=== PATIENT | male | born 1960 | race Caucasian/White ===

== ENCOUNTER 2021-08-30 13:03 | Day surgery (SDC) | payer BC ==
[2021-08-30 13:24] VITALS: RESP 16; TEMP 97.4
[2021-08-30 14:04] LABS: Mean Platelet Volume 6.7; Platelet Count 359 k/uL (150-450)
[2021-08-30 14:12] LABS: Prothrombin Time 11.3 sec (9.0-12.0)
[2021-08-30 15:30] VITALS: PULSE 82
[2021-08-30 15:31] VITALS: BP 132/77
[2021-08-31 06:06] LABS: Appearance,BF Clear
[2021-08-31 06:13] LABS: Albumin, Fluid Source Ascites; T. Protein, Body Fluid Source Ascites; Total Protein, Body Fluid 573 mg/dL
--- NOTE | 2021-08-31 08:26 | US ---
Ultrasound-guided paracentesis. DATE OF EXAM: 08/30/2021 CLINICAL HISTORY: Ascites The procedure was discussed with the patient. The risks, complications, benefits, and alternatives we re discussed and any questions were answered. Informed consent was obtained. The patient was placed s upine on the ultrasound table and prepped and draped in the usual sterile fashion. All elements of maximal barrier technique were utilized. Under ultrasound guidance, access into the right lower quadrant was obtained, via the paracentesis catheter system and direct ultrasound guidanc e. Approximately 6 liters of straw-colored fluid was removed. The patient was stable throughout the proc edure and remained stable upon discharge from Department of Radiology. IMPRESSION: Successful paracentesis under ultrasound guidance.
== END 2021-08-30 15:45 | disposition home or self-care (01) ==
LOC: RADPROMAIN 13:03
PROVIDERS: ATTEND Internal Medicine
DX: G89.3 Neoplasm related pain (acute) (chronic) (principal); C25.9 Malignant neoplasm of pancreas, unspecified; K92.2 Gastrointestinal hemorrhage, unspecified; K62.5 Hemorrhage of anus and rectum; I72.9 Aneurysm of unspecified site
CPT/HCPCS: 82042; 89050; 85049; 85610; 87070; 87205; 87075; 84157; 36415; 49083; J1642

== ENCOUNTER 2021-09-02 09:03 | Day surgery (SDC) | payer BC ==
[2021-09-02 10:15] VITALS: RESP 18; TEMP 98.1
[2021-09-02 11:43] VITALS: BP 131/74; PULSE 78
--- NOTE | 2021-09-02 14:30 | US ---
Ultrasound-guided paracentesis. DATE OF EXAM: 09/02/2021 CLINICAL HISTORY: Ascites The procedure was discussed with the patient. The risks, complications, benefits, and alternatives we re discussed and any questions were answered. Informed consent was obtained. The patient was placed s upine on the ultrasound table and prepped and draped in the usual sterile fashion. All elements of maximal barrier technique were utilized. Under ultrasound guidance, access into the right lower quadrant was obtained, via the paracentesis catheter system and direct ultrasound guidanc e. Approximately 6 liters of straw-colored fluid was removed. The patient was stable throughout the proc edure and remained stable upon discharge from Department of Radiology. IMPRESSION: Successful paracentesis under ultrasound guidance.
== END 2021-09-02 11:30 | disposition home or self-care (01) ==
LOC: RADPROMAIN 09:03
PROVIDERS: ATTEND Internal Medicine
DX: R18.8 Other ascites (principal)
CPT/HCPCS: 49083

== ENCOUNTER 2021-09-09 08:51 | Day surgery (SDC) | payer BC ==
[2021-09-09 09:24] VITALS: RESP 18; TEMP 98.3
[2021-09-09 12:11] VITALS: BP 134/88; PULSE 101
--- NOTE | 2021-09-09 15:32 | US ---
Ultrasound-guided paracentesis. DATE OF EXAM: 09/09/2021 CLINICAL HISTORY: Ascites The procedure was discussed with the patient. The risks, complications, benefits, and alternatives we re discussed and any questions were answered. Informed consent was obtained. The patient was placed s upine on the ultrasound table and prepped and draped in the usual sterile fashion. All elements of maximal barrier technique were utilized. Under ultrasound guidance, access into the right lower quadrant was obtained, via the paracentesis catheter system and direct ultrasound guidanc e. Approximately 4.8 liters of straw-colored fluid was removed. The patient was stable throughout the pr ocedure and remained stable upon discharge from Department of Radiology. IMPRESSION: Successful paracentesis under ultrasound guidance.
== END 2021-09-09 11:30 | disposition home or self-care (01) ==
LOC: RADPROMAIN 08:51
DX: R18.8 Other ascites (principal); C25.9 Malignant neoplasm of pancreas, unspecified
CPT/HCPCS: 49083

== ENCOUNTER 2021-09-12 12:13 | Day surgery (SDC) | payer BC ==
[2021-09-12 12:44] VITALS: RESP 16; TEMP 98.1
[2021-09-12 12:51] LABS: Platelet Count 326 k/uL (150-450)
[2021-09-12 13:21] LABS: INR 0.9 (<1.2); Prothrombin Time 10.3 sec (9.0-12.0)
[2021-09-12 14:32] VITALS: BP 127/73; PULSE 92
--- NOTE | 2021-09-12 14:42 | US ---
Ultrasound-guided paracentesis. DATE OF EXAM: 09/12/2021 CLINICAL HISTORY: Ascites The procedure was discussed with the patient. The risks, complications, benefits, and alternatives we re discussed and any questions were answered. Informed consent was obtained. The patient was placed s upine on the ultrasound table and prepped and draped in the usual sterile fashion. All elements of maximal barrier technique were utilized. Under ultrasound guidance, access into the right lower quadrant was obtained, via the paracentesis catheter system and direct ultrasound guidanc e. Approximately 4.3 liters of straw-colored fluid was removed. The patient was stable throughout the pr ocedure and remained stable upon discharge from Department of Radiology. IMPRESSION: Successful paracentesis under ultrasound guidance.
[2021-09-12 23:30] LABS: Appearance,BF Cloudy
[2021-09-13 06:10] LABS: Albumin, Fluid Source Ascites; T. Protein, Body Fluid Source Ascites; Total Protein, Body Fluid 719 mg/dL
== END 2021-09-12 14:35 | disposition home or self-care (01) ==
LOC: RADPROMAIN 12:13
PROVIDERS: ATTEND Internal Medicine
DX: R18.8 Other ascites (principal)
CPT/HCPCS: 82042; 89050; 85049; 85610; 87070; 87205; 87075; 84157; 49083; J1642; 88108; 88305; 88341; 88342

== ENCOUNTER 2021-09-15 08:46 | Day surgery (SDC) | payer BC ==
[2021-09-15 09:04] VITALS: RESP 16; TEMP 98.1
[2021-09-15 10:37] VITALS: BP 116/79; PULSE 82
--- NOTE | 2021-09-15 13:24 | US ---
EXAMINATION TYPE: US paracentesis abd w/image DATE OF EXAM: 09/15/2021 COMPARISON: NONE HISTORY: Ascites. PROCEDURE: Maximal barrier technique was utilized. The skin overlying a suitable pocket of fluid was localized with ultrasound and the overlying skin was prepped and draped. Ultrasound was utilized with sterile technique. Lidocaine was used for local anesthesia and a skin arina made with a scalpel. Catheter was advanced under direct ultrasound guidance into a suitable pocket of fluid and approximately3.2 liters of cloudy greenish fluid were removed. Catheter was withdrawn and hemostasis achieved. There is no immediate complication; the patient is discharged in stable condition. IMPRESSION: STATUS POST ULTRASOUND GUIDED PARACENTESIS FOR PALLIATION OF ASCITES. THIS PROCEDURE WA S PERFORMED BY THE UNDERSIGNED.
== END 2021-09-15 10:42 | disposition home or self-care (01) ==
LOC: RADPROMAIN 08:46
PROVIDERS: ATTEND Internal Medicine
DX: R18.8 Other ascites (principal)
CPT/HCPCS: 49083

== ENCOUNTER 2021-09-20 12:10 | Day surgery (SDC) | payer BC ==
[2021-09-20 13:03] LABS: Prothrombin Time 10.8 sec (9.0-12.0)
[2021-09-20 13:08] LABS: Mean Platelet Volume 6.5; Platelet Count 376 k/uL (150-450)
[2021-09-20 13:15] VITALS: RESP 16; TEMP 98.3
[2021-09-20 14:31] VITALS: BP 130/76; PULSE 85
--- NOTE | 2021-09-20 15:18 | US ---
EXAMINATION TYPE: US paracentesis abd w/image DATE OF EXAM: 09/20/2021 COMPARISON: NONE HISTORY: Ascites. PROCEDURE: Maximal barrier technique was utilized. The skin overlying a suitable pocket of fluid was localized with ultrasound and the overlying skin was prepped and draped. Ultrasound was utilized with sterile technique. Lidocaine was used for local anesthesia and a skin arina made with a scalpel. Catheter was advanced under direct ultrasound guidance into a suitable pocket of fluid and approximately 5.3 liter s of cloudy yellow-green fluid were removed. Catheter was withdrawn and hemostasis achieved. There is no immediate complication; the patient is discharged in stable condition. IMPRESSION: STATUS POST ULTRASOUND GUIDED PARACENTESIS FOR PALLIATION OF ASCITES. THIS PROCEDURE WA S PERFORMED BY THE UNDERSIGNED.
[2021-09-21 00:47] LABS: Appearance,BF Cloudy
[2021-09-21 07:11] LABS: Albumin, Fluid Source Body Fluid; T. Protein, Body Fluid Source Body Fluid; Total Protein, Body Fluid 838 mg/dL
== END 2021-09-20 14:30 | disposition home or self-care (01) ==
LOC: RADPROMAIN 12:10
PROVIDERS: ATTEND Internal Medicine
DX: R10.9 Unspecified abdominal pain (principal); C25.9 Malignant neoplasm of pancreas, unspecified; I72.9 Aneurysm of unspecified site; K92.2 Gastrointestinal hemorrhage, unspecified; K62.5 Hemorrhage of anus and rectum; G89.3 Neoplasm related pain (acute) (chronic)
CPT/HCPCS: 82042; 89050; 85049; 85610; 84157; 49083; J1642

== ENCOUNTER 2021-09-23 08:51 | Day surgery (SDC) | payer BC ==
[2021-09-23 09:29] VITALS: RESP 16; TEMP 98.4
[2021-09-23 10:33] VITALS: BP 115/71; PULSE 88
--- NOTE | 2021-09-23 12:31 | US ---
EXAMINATION TYPE: US paracentesis abd w/image DATE OF EXAM: 09/23/2021 COMPARISON: NONE HISTORY: Ascites. PROCEDURE: Maximal barrier technique was utilized. The skin overlying a suitable pocket of fluid was localized with ultrasound and the overlying skin was prepped and draped. Ultrasound was utilized with sterile technique. Lidocaine was used for local anesthesia and a skin arina made with a scalpel. Catheter was advanced under direct ultrasound guidance into a suitable pocket of fluid and approximately 4.8 liter s of serous fluid were removed. Catheter was withdrawn and hemostasis achieved. There is no immedia te complication; the patient is discharged in stable condition. IMPRESSION: STATUS POST ULTRASOUND GUIDED PARACENTESIS FOR PALLIATION OF ASCITES. THIS PROCEDURE WA S PERFORMED BY THE UNDERSIGNED.
== END 2021-09-23 10:36 | disposition home or self-care (01) ==
LOC: RADPROMAIN 08:51
PROVIDERS: ATTEND Internal Medicine
DX: R18.8 Other ascites (principal); C25.9 Malignant neoplasm of pancreas, unspecified
CPT/HCPCS: 49083

== ENCOUNTER 2021-09-26 08:51 | Day surgery (SDC) | payer BC ==
[2021-09-26 09:23] LABS: Mean Platelet Volume 6.6; Platelet Count 370 k/uL (150-450)
[2021-09-26 09:57] VITALS: RESP 16; TEMP 97.6
[2021-09-26 10:43] VITALS: BP 123/73; PULSE 85
--- NOTE | 2021-09-26 11:02 | US ---
Ultrasound-guided paracentesis. DATE OF EXAM: 09/26/2021 CLINICAL HISTORY: Ascites The procedure was discussed with the patient. The risks, complications, benefits, and alternatives we re discussed and any questions were answered. Informed consent was obtained. The patient was placed s upine on the ultrasound table and prepped and draped in the usual sterile fashion. All elements of maximal barrier technique were utilized. Under ultrasound guidance, access into the right lower quadrant was obtained, via the paracentesis catheter system and direct ultrasound guidanc e. Approximately 4.1 liters of straw-colored fluid was removed. The patient was stable throughout the pr ocedure and remained stable upon discharge from Department of Radiology. IMPRESSION: Successful paracentesis under ultrasound guidance.
[2021-09-26 19:49] LABS: Albumin, Fluid Source Ascites; T. Protein, Body Fluid Source Ascites; Total Protein, Body Fluid 780 mg/dL
[2021-09-26 20:16] LABS: Appearance,BF Cloudy
== END 2021-09-26 10:49 | disposition home or self-care (01) ==
LOC: RADPROMAIN 08:51
PROVIDERS: ATTEND Internal Medicine
DX: R18.8 Other ascites (principal); G89.3 Neoplasm related pain (acute) (chronic); C25.9 Malignant neoplasm of pancreas, unspecified; R10.9 Unspecified abdominal pain; I72.9 Aneurysm of unspecified site; K92.2 Gastrointestinal hemorrhage, unspecified; K62.5 Hemorrhage of anus and rectum
CPT/HCPCS: 88108; 88305; 82042; 89050; 85049; 85610; 88342; 88341; 87070; 87205; 87075; 84157; 49083; J1642

== ENCOUNTER 2021-09-29 08:57 | Day surgery (SDC) | payer BC ==
[2021-09-29 09:58] VITALS: RESP 16
[2021-09-29 11:03] VITALS: BP 114/80; PULSE 81
--- NOTE | 2021-09-29 12:25 | US ---
EXAMINATION TYPE: US paracentesis abd w/image DATE OF EXAM: 09/29/2021 COMPARISON: NONE HISTORY: Ascites. Pancreatic carcinoma and pain PROCEDURE: Maximal barrier technique was utilized. The skin overlying a suitable pocket of fluid was localized with ultrasound and the overlying skin was prepped and draped. Ultrasound was utilized with sterile technique. Lidocaine was used for local anesthesia and a skin arina made with a scalpel. Catheter was advanced under direct ultrasound guidance into a suitable pocket of fluid and approximately 3.8 liter s of serous fluid were removed. Catheter was withdrawn and hemostasis achieved. There is no immedia te complication; the patient is discharged in stable condition. IMPRESSION: STATUS POST ULTRASOUND GUIDED PARACENTESIS FOR PALLIATION OF ASCITES. THIS PROCEDURE WA S PERFORMED BY THE UNDERSIGNED.
== END 2021-09-29 11:05 | disposition home or self-care (01) ==
LOC: RADPROMAIN 08:57
PROVIDERS: ATTEND Internal Medicine
DX: C25.9 Malignant neoplasm of pancreas, unspecified (principal); R18.8 Other ascites
CPT/HCPCS: 49083

== ENCOUNTER 2021-10-04 12:25 | Day surgery (SDC) | payer BC ==
[2021-10-04 13:00] LABS: Mean Platelet Volume 6.6; Platelet Count 364 k/uL (150-450)
[2021-10-04 13:15] VITALS: TEMP 98.1
[2021-10-04 13:22] LABS: INR 1.1 (<1.2); Prothrombin Time 11.7 sec (9.0-12.0)
[2021-10-04 15:11] VITALS: BP 122/74; PULSE 86; RESP 14
--- NOTE | 2021-10-04 15:20 | US ---
Ultrasound-guided paracentesis. DATE OF EXAM: 10/04/2021 CLINICAL HISTORY: Ascites The procedure was discussed with the patient. The risks, complications, benefits, and alternatives we re discussed and any questions were answered. Informed consent was obtained. The patient was placed s upine on the ultrasound table and prepped and draped in the usual sterile fashion. All elements of maximal barrier technique were utilized. Under ultrasound guidance, access into the right lower quadrant was obtained, via the paracentesis catheter system and direct ultrasound guidanc e. Approximately 4.7 liters of straw-colored fluid was removed. The patient was stable throughout the pr ocedure and remained stable upon discharge from Department of Radiology. IMPRESSION: Successful paracentesis under ultrasound guidance.
== END 2021-10-04 15:05 | disposition home or self-care (01) ==
LOC: RADPROMAIN 12:25
DX: C25.9 Malignant neoplasm of pancreas, unspecified (principal); G89.3 Neoplasm related pain (acute) (chronic); K62.5 Hemorrhage of anus and rectum; I72.9 Aneurysm of unspecified site
CPT/HCPCS: 85049; 85610; 49083; J1642

== ENCOUNTER 2021-10-11 09:09 | Day surgery (SDC) | payer BC ==
[2021-10-11 09:37] LABS: Mean Platelet Volume 6.9; Platelet Count 443 k/uL (150-450)
[2021-10-11 10:07] VITALS: RESP 18
[2021-10-11 10:13] VITALS: TEMP 98.3
[2021-10-11 11:07] VITALS: BP 110/67; PULSE 86
--- NOTE | 2021-10-11 11:59 | US ---
Ultrasound-guided paracentesis. DATE OF EXAM: 10/11/2021 CLINICAL HISTORY: Ascites The procedure was discussed with the patient. The risks, complications, benefits, and alternatives we re discussed and any questions were answered. Informed consent was obtained. The patient was placed s upine on the ultrasound table and prepped and draped in the usual sterile fashion. All elements of maximal barrier technique were utilized. Under ultrasound guidance, access into the right lower quadrant was obtained, via the paracentesis catheter system and direct ultrasound guidanc e. Approximately 5.5 liters of straw-colored fluid was removed. The patient was stable throughout the pr ocedure and remained stable upon discharge from Department of Radiology. IMPRESSION: Successful paracentesis under ultrasound guidance.
== END 2021-10-11 11:30 | disposition home or self-care (01) ==
LOC: RADPROMAIN 09:09
PROVIDERS: ATTEND Family Medicine
DX: R18.8 Other ascites (principal); C25.9 Malignant neoplasm of pancreas, unspecified
CPT/HCPCS: 85049; 85610; 49083; J1642

== ENCOUNTER 2021-10-14 09:18 | Day surgery (SDC) | payer BC ==
[2021-10-14 09:45] VITALS: RESP 16
[2021-10-14 10:37] VITALS: BP 102/65; PULSE 76
--- NOTE | 2021-10-14 13:13 | US ---
Ultrasound-guided paracentesis. DATE OF EXAM: 10/14/2021 CLINICAL HISTORY: Ascites The procedure was discussed with the patient. The risks, complications, benefits, and alternatives we re discussed and any questions were answered. Informed consent was obtained. The patient was placed s upine on the ultrasound table and prepped and draped in the usual sterile fashion. All elements of maximal barrier technique were utilized. Under ultrasound guidance, access into the right lower quadrant was obtained, via the paracentesis catheter system and direct ultrasound guidanc e. Approximately 4.2 liters of straw-colored fluid was removed. The patient was stable throughout the pr ocedure and remained stable upon discharge from Department of Radiology. IMPRESSION: Successful paracentesis under ultrasound guidance.
== END 2021-10-14 11:00 | disposition home or self-care (01) ==
LOC: RADPROMAIN 09:18
PROVIDERS: ATTEND Family Medicine
DX: R18.8 Other ascites (principal); C25.9 Malignant neoplasm of pancreas, unspecified
CPT/HCPCS: 49083

== ENCOUNTER 2021-10-18 12:32 | Day surgery (SDC) | payer BC ==
[2021-10-18 13:14] LABS: Mean Platelet Volume 6.5; Platelet Count 420 k/uL (150-450)
[2021-10-18 13:19] LABS: Prothrombin Time 11.1 sec (9.0-12.0)
[2021-10-18 13:41] VITALS: RESP 16; TEMP 97.5
[2021-10-18 14:52] VITALS: BP 110/72; PULSE 73
--- NOTE | 2021-10-18 15:57 | US ---
EXAMINATION TYPE: US paracentesis abd w/image DATE OF EXAM: 10/18/2021 COMPARISON: NONE HISTORY: Ascites. PROCEDURE: Maximal barrier technique was utilized. The skin overlying a suitable pocket of fluid was localized with ultrasound and the overlying skin was prepped and draped. Ultrasound was utilized with sterile technique. Lidocaine was used for local anesthesia and a skin arina made with a scalpel. Catheter was advanced under direct ultrasound guidance into a suitable pocket of fluid and approximately 4.9 liter s of serous fluid were removed. Catheter was withdrawn and hemostasis achieved. There is no immedia te complication; the patient is discharged in stable condition. IMPRESSION: STATUS POST ULTRASOUND GUIDED PARACENTESIS FOR PALLIATION OF ASCITES. THIS PROCEDURE WA S PERFORMED BY THE UNDERSIGNED.
== END 2021-10-18 15:00 | disposition home or self-care (01) ==
LOC: RADPROMAIN 12:32
PROVIDERS: ATTEND Internal Medicine
DX: R18.8 Other ascites (principal)
CPT/HCPCS: 85049; 85610; 36415; 49083; J1642

== ENCOUNTER 2021-10-25 09:11 | Day surgery (SDC) | payer BC ==
[2021-10-25 09:44] LABS: Mean Platelet Volume 6.5; Platelet Count 343 k/uL (150-450)
[2021-10-25] MEDS: ALBUMIN HUMAN 25% 50 ML in EMPTY BAG 1 BAG IVPB SCH ×2 (09:52→10:15)
[2021-10-25 09:56] LABS: Prothrombin Time 10.9 sec (9.0-12.0)
[2021-10-25 09:57] VITALS: RESP 16; TEMP 97.6
[2021-10-25] MEDS ORDERED: LIDOCAINE 1% INJ 10MG/ML (20 ML MDV) SQ STA (10:13)
[2021-10-25 11:17] VITALS: BP 103/67; PULSE 74
--- NOTE | 2021-10-25 11:26 | US ---
EXAMINATION TYPE: US paracentesis abd w/image DATE OF EXAM: 10/25/2021 COMPARISON: NONE HISTORY: Ascites. PROCEDURE: Maximal barrier technique was utilized. The skin overlying a suitable pocket of fluid was localized with ultrasound and the overlying skin was prepped and draped. Ultrasound was utilized with sterile technique. Lidocaine was used for local anesthesia and a skin arina made with a scalpel. Catheter was advanced under direct ultrasound guidance into a suitable pocket of fluid and approximately 5.7 liter s of serous fluid were removed. Catheter was withdrawn and hemostasis achieved. There is no immedia te complication; the patient is discharged in stable condition. IMPRESSION: STATUS POST ULTRASOUND GUIDED PARACENTESIS FOR PALLIATION OF ASCITES. THIS PROCEDURE WA S PERFORMED BY THE UNDERSIGNED.
== END 2021-10-25 11:10 | disposition home or self-care (01) ==
LOC: RADPROMAIN 09:11
PROVIDERS: ATTEND Internal Medicine Gastroenterology
DX: R18.8 Other ascites (principal)
CPT/HCPCS: 85049; 85610; 49083; J2001; P9047; J1642

== ENCOUNTER 2021-10-28 09:12 | Day surgery (SDC) | payer BC ==
[2021-10-28 09:42] VITALS: RESP 18
[2021-10-28] MEDS: ALBUMIN HUMAN 25% 50 ML in EMPTY BAG 1 BAG IVPB SCH ×2 (09:54→10:12)
[2021-10-28 11:07] VITALS: BP 105/70; PULSE 74
--- NOTE | 2021-10-28 13:05 | US ---
Ultrasound-guided paracentesis. DATE OF EXAM: 10/28/2021 CLINICAL HISTORY: Ascites The procedure was discussed with the patient. The risks, complications, benefits, and alternatives we re discussed and any questions were answered. Informed consent was obtained. The patient was placed s upine on the ultrasound table and prepped and draped in the usual sterile fashion. All elements of maximal barrier technique were utilized. Under ultrasound guidance, access into the right lower quadrant was obtained, via the paracentesis catheter system and direct ultrasound guidanc e. Approximately 5.2 liters of straw-colored fluid was removed. The patient was stable throughout the pr ocedure and remained stable upon discharge from Department of Radiology. IMPRESSION: Successful paracentesis under ultrasound guidance.
== END 2021-10-28 11:05 | disposition home or self-care (01) ==
LOC: RADPROMAIN 09:12
PROVIDERS: ATTEND Internal Medicine Gastroenterology
DX: R18.8 Other ascites (principal)
CPT/HCPCS: 49083; P9047; J1642

== ENCOUNTER 2021-11-01 12:22 | Day surgery (SDC) | payer BC ==
[2021-11-01 12:52] LABS: Mean Platelet Volume 6.9; Platelet Count 385 k/uL (150-450)
[2021-11-01 13:00] LABS: Prothrombin Time 10.8 sec (9.0-12.0)
[2021-11-01] MEDS: ALBUMIN HUMAN 25% 50 ML in EMPTY BAG 1 BAG IVPB SCH ×2 (13:54→14:07)
[2021-11-01 14:01] VITALS: TEMP 97.7
[2021-11-01 15:00] VITALS: RESP 14
[2021-11-01 15:01] VITALS: PULSE 76
[2021-11-01 15:02] VITALS: BP 93/54
--- NOTE | 2021-11-01 15:49 | US ---
Ultrasound-guided paracentesis. DATE OF EXAM: 11/01/2021 CLINICAL HISTORY: Ascites The procedure was discussed with the patient. The risks, complications, benefits, and alternatives we re discussed and any questions were answered. Informed consent was obtained. The patient was placed s upine on the ultrasound table and prepped and draped in the usual sterile fashion. All elements of maximal barrier technique were utilized. Under ultrasound guidance, access into the right lower quadrant was obtained, via the paracentesis catheter system and direct ultrasound guidanc e. Approximately 6.25 liters of straw-colored fluid was removed. The patient was stable throughout the p rocedure and remained stable upon discharge from Department of Radiology. IMPRESSION: Successful paracentesis under ultrasound guidance.
== END 2021-11-01 15:01 | disposition home or self-care (01) ==
LOC: RADPROMAIN 12:22
PROVIDERS: ATTEND Internal Medicine Gastroenterology
DX: R18.8 Other ascites (principal)
CPT/HCPCS: 85049; 85610; 49083; P9047; J1642

== ENCOUNTER 2021-11-04 09:18 | Day surgery (SDC) | payer BC ==
[2021-11-04 09:49] VITALS: TEMP 97.8
[2021-11-04] MEDS ORDERED: LIDOCAINE 1% INJ 10MG/ML (20 ML MDV) SQ ONE (10:05)
[2021-11-04 10:10] VITALS: RESP 14
[2021-11-04] MEDS: ALBUMIN HUMAN 25% 50 ML in EMPTY BAG 1 BAG IVPB SCH ×2 (10:10→10:22)
[2021-11-04 11:31] VITALS: BP 109/64; PULSE 75
--- NOTE | 2021-11-04 12:11 | US ---
Ultrasound-guided paracentesis. DATE OF EXAM: 11/04/2021 CLINICAL HISTORY: Ascites The procedure was discussed with the patient. The risks, complications, benefits, and alternatives we re discussed and any questions were answered. Informed consent was obtained. The patient was placed s upine on the ultrasound table and prepped and draped in the usual sterile fashion. All elements of maximal barrier technique were utilized. Under ultrasound guidance, access into the right lower quadrant was obtained, via the paracentesis catheter system and direct ultrasound guidanc e. Approximately 5.6 liters of straw-colored fluid was removed. The patient was stable throughout the pr ocedure and remained stable upon discharge from Department of Radiology. IMPRESSION: Successful paracentesis under ultrasound guidance.
== END 2021-11-04 11:25 | disposition home or self-care (01) ==
LOC: RADPROMAIN 09:18
PROVIDERS: ATTEND Internal Medicine Gastroenterology
DX: R18.8 Other ascites (principal)
CPT/HCPCS: 49083; J2001; P9047; J1642

== ENCOUNTER 2021-11-08 12:33 | Day surgery (SDC) | payer BC ==
[2021-11-08 13:02] VITALS: TEMP 97.3
[2021-11-08 13:02] LABS: Mean Platelet Volume 6.4; Platelet Count 427 k/uL (150-450)
[2021-11-08] MEDS: ALBUMIN HUMAN 25% 50 ML in EMPTY BAG 1 BAG IVPB SCH ×2 (13:44→13:57)
[2021-11-08 15:01] VITALS: BP 116/74; PULSE 72; RESP 14
--- NOTE | 2021-11-08 15:47 | US ---
Ultrasound-guided paracentesis. DATE OF EXAM: 11/08/2021 CLINICAL HISTORY: Ascites The procedure was discussed with the patient. The risks, complications, benefits, and alternatives we re discussed and any questions were answered. Informed consent was obtained. The patient was placed s upine on the ultrasound table and prepped and draped in the usual sterile fashion. All elements of maximal barrier technique were utilized. Under ultrasound guidance, access into the right lower quadrant was obtained, via the paracentesis catheter system and direct ultrasound guidanc e. Approximately 5.9 liters of straw-colored fluid was removed. The patient was stable throughout the pr ocedure and remained stable upon discharge from Department of Radiology. IMPRESSION: Successful paracentesis under ultrasound guidance.
== END 2021-11-08 14:58 | disposition home or self-care (01) ==
LOC: RADPROMAIN 12:33
PROVIDERS: ATTEND Internal Medicine Gastroenterology
DX: R18.8 Other ascites (principal)
CPT/HCPCS: 85049; 85610; 49083; P9047; J1642

== ENCOUNTER 2021-11-11 09:11 | Day surgery (SDC) | payer BC ==
[2021-11-11 09:21] VITALS: RESP 16; TEMP 97.4
[2021-11-11] MEDS: ALBUMIN HUMAN 25% 50 ML in EMPTY BAG 1 BAG IVPB SCH ×2 (09:52→10:04)
[2021-11-11 10:38] VITALS: BP 115/73; PULSE 78
--- NOTE | 2021-11-11 11:53 | US ---
Ultrasound-guided paracentesis. DATE OF EXAM: 11/11/2021 CLINICAL HISTORY: Ascites The procedure was discussed with the patient. The risks, complications, benefits, and alternatives we re discussed and any questions were answered. Informed consent was obtained. The patient was placed s upine on the ultrasound table and prepped and draped in the usual sterile fashion. All elements of maximal barrier technique were utilized. Under ultrasound guidance, access into the right lower quadrant was obtained, via the paracentesis catheter system and direct ultrasound guidanc e. Approximately 4.9 liters of straw-colored fluid was removed. The patient was stable throughout the pr ocedure and remained stable upon discharge from Department of Radiology. IMPRESSION: Successful paracentesis under ultrasound guidance.
== END 2021-11-11 10:45 | disposition home or self-care (01) ==
LOC: RADPROMAIN 09:11
PROVIDERS: ATTEND Internal Medicine Gastroenterology
DX: R18.8 Other ascites (principal)
CPT/HCPCS: 49083; P9047; J1642

== ENCOUNTER 2021-11-15 12:43 | Day surgery (SDC) | payer BC ==
[2021-11-15 12:59] VITALS: RESP 16; TEMP 97.4
[2021-11-15 13:15] LABS: Mean Platelet Volume 6.3; Platelet Count 445 k/uL (150-450)
[2021-11-15 13:27] LABS: Prothrombin Time 11.1 sec (9.0-12.0)
[2021-11-15] MEDS: ALBUMIN HUMAN 25% 50 ML in EMPTY BAG 1 BAG IVPB SCH ×2 (14:03→14:18)
[2021-11-15 14:40] VITALS: PULSE 73
[2021-11-15 14:58] VITALS: BP 124/75
--- NOTE | 2021-11-15 16:34 | US ---
EXAMINATION TYPE: US paracentesis abd w/image DATE OF EXAM: 11/15/2021 COMPARISON: NONE HISTORY: Ascites. PROCEDURE: Maximal barrier technique was utilized. The skin overlying a suitable pocket of fluid was localized with ultrasound and the overlying skin was prepped and draped. Ultrasound was utilized with sterile technique. Lidocaine was used for local anesthesia and a skin arina made with a scalpel. Catheter was advanced under direct ultrasound guidance into a suitable pocket of fluid and approximately 6 liters of serous fluid were removed. Catheter was withdrawn and hemostasis achieved. There is no immediate complication; the patient is discharged in stable condition. IMPRESSION: STATUS POST ULTRASOUND GUIDED PARACENTESIS FOR PALLIATION OF ASCITES. THIS PROCEDURE WA S PERFORMED BY THE UNDERSIGNED.
== END 2021-11-15 15:10 | disposition home or self-care (01) ==
LOC: RADPROMAIN 12:43
PROVIDERS: ATTEND Internal Medicine Gastroenterology
DX: R18.8 Other ascites (principal)
CPT/HCPCS: 85049; 85610; 49083; P9047; J1642

== ENCOUNTER 2021-11-18 09:11 | Day surgery (SDC) | payer BC ==
[2021-11-18] MEDS: ALBUMIN HUMAN 25% 50 ML in EMPTY BAG 1 BAG IVPB SCH ×2 (11:20→11:30)
[2021-11-18 11:29] VITALS: RESP 20; TEMP 98.2
[2021-11-18 12:07] VITALS: BP 100/65; PULSE 81
--- NOTE | 2021-11-18 13:11 | US ---
EXAMINATION TYPE: US paracentesis abd w/image DATE OF EXAM: 11/18/2021 COMPARISON: NONE HISTORY: Ascites. PROCEDURE: Maximal barrier technique was utilized. The skin overlying a suitable pocket of fluid was localized with ultrasound and the overlying skin was prepped and draped. Ultrasound was utilized with sterile technique. Lidocaine was used for local anesthesia and a skin arina made with a scalpel. Catheter was advanced under direct ultrasound guidance into a suitable pocket of fluid and approximately 4.3 liter s of serous fluid were removed. Catheter was withdrawn and hemostasis achieved. There is no immedia te complication; the patient is discharged in stable condition. IMPRESSION: STATUS POST ULTRASOUND GUIDED PARACENTESIS FOR PALLIATION OF ASCITES. THIS PROCEDURE WA S PERFORMED BY THE UNDERSIGNED.
== END 2021-11-18 12:05 | disposition home or self-care (01) ==
LOC: RADPROMAIN 09:11
PROVIDERS: ATTEND Internal Medicine Gastroenterology
DX: R18.8 Other ascites (principal)
CPT/HCPCS: 49083; P9047

== ENCOUNTER 2021-11-22 12:31 | Day surgery (SDC) | payer BC ==
[2021-11-22 13:01] LABS: Mean Platelet Volume 6.1; Platelet Count 389 k/uL (150-450)
[2021-11-22 13:13] LABS: Prothrombin Time 10.9 sec (9.0-12.0)
[2021-11-22 13:15] VITALS: TEMP 97.9
[2021-11-22] MEDS: ALBUMIN HUMAN 25% 50 ML in EMPTY BAG 1 BAG IVPB SCH ×2 (14:05→14:16)
[2021-11-22 14:22] VITALS: RESP 20
[2021-11-22 15:19] VITALS: BP 106/67; PULSE 74
--- NOTE | 2021-11-22 15:45 | US ---
EXAMINATION TYPE: US paracentesis abd w/image DATE OF EXAM: 11/22/2021 COMPARISON: NONE HISTORY: Ascites. PROCEDURE: Maximal barrier technique was utilized. The skin overlying a suitable pocket of fluid was localized with ultrasound and the overlying skin was prepped and draped. Ultrasound was utilized with sterile technique. Lidocaine was used for local anesthesia and a skin arina made with a scalpel. Catheter was advanced under direct ultrasound guidance into a suitable pocket of fluid and approximately 5.3 liter s of cloudy fluid were removed. Catheter was withdrawn and hemostasis achieved. There is no immedia te complication; the patient is discharged in stable condition. IMPRESSION: STATUS POST ULTRASOUND GUIDED PARACENTESIS FOR PALLIATION OF ASCITES. THIS PROCEDURE WA S PERFORMED BY THE UNDERSIGNED.
== END 2021-11-22 15:05 | disposition home or self-care (01) ==
LOC: RADPROMAIN 12:31
PROVIDERS: ATTEND Internal Medicine Gastroenterology
DX: R18.8 Other ascites (principal)
CPT/HCPCS: 49083; 85049; 85610; P9047; J1642

== ENCOUNTER 2021-11-25 09:03 | Day surgery (SDC) | payer BC ==
[2021-11-25 09:31] VITALS: TEMP 97.9
[2021-11-25] MEDS: ALBUMIN HUMAN 25% 50 ML in EMPTY BAG 1 BAG IVPB SCH ×2 (10:36→10:51)
[2021-11-25 10:51] VITALS: RESP 18
[2021-11-25 11:28] VITALS: BP 116/67; PULSE 79
--- NOTE | 2021-11-25 13:21 | US ---
EXAMINATION TYPE: US paracentesis abd w/image DATE OF EXAM: 11/25/2021 COMPARISON: NONE HISTORY: Ascites. PROCEDURE: Maximal barrier technique was utilized. The skin overlying a suitable pocket of fluid was localized with ultrasound and the overlying skin was prepped and draped. Ultrasound was utilized with sterile technique. Lidocaine was used for local anesthesia and a skin arina made with a scalpel. Catheter was advanced under direct ultrasound guidance into a suitable pocket of fluid and approximately 4.1 liter s of serous fluid were removed. Catheter was withdrawn and hemostasis achieved. There is no immedia te complication; the patient is discharged in stable condition. IMPRESSION: STATUS POST ULTRASOUND GUIDED PARACENTESIS FOR PALLIATION OF ASCITES. THIS PROCEDURE WA S PERFORMED BY THE UNDERSIGNED.
== END 2021-11-25 11:25 | disposition home or self-care (01) ==
LOC: RADPROMAIN 09:03
PROVIDERS: ATTEND Internal Medicine Gastroenterology
DX: R18.8 Other ascites (principal)
CPT/HCPCS: 49083; P9047; J1642

== ENCOUNTER 2021-11-29 12:34 | Day surgery (SDC) | payer BC ==
[~2021-11-29 12:34] MED LIST: ALBUMIN HUMAN 25% 50 ML in EMPTY BAG 1 BAG IVPB ONE
[2021-11-29] MEDS ORDERED: ALTEPLASE 2 MG VIAL (CATHFLO) IV STA (12:57)
[2021-11-29] MEDS ORDERED: ALBUMIN HUMAN 25% 50 ML in EMPTY BAG 1 BAG IVPB ONE (13:34)
[2021-11-29 14:00] VITALS: RESP 18
[2021-11-29] MEDS ORDERED: LIDOCAINE 1% INJ 10MG/ML (5 ML VIAL-PF) SQ ONE (14:28)
[2021-11-29 15:20] LABS: Mean Platelet Volume 6.1; Platelet Count 311 k/uL (150-450)
[2021-11-29 15:25] LABS: INR 1.1 (<1.2); Prothrombin Time 11.3 sec (9.0-12.0)
[2021-11-29 15:39] VITALS: BP 112/76; PULSE 74
--- NOTE | 2021-11-30 09:13 | US ---
Ultrasound-guided paracentesis. DATE OF EXAM: 11/29/2021 CLINICAL HISTORY: Ascites The procedure was discussed with the patient. The risks, complications, benefits, and alternatives we re discussed and any questions were answered. Informed consent was obtained. The patient was placed s upine on the ultrasound table and prepped and draped in the usual sterile fashion. All elements of maximal barrier technique were utilized. Under ultrasound guidance, access into the right lower quadrant was obtained, via the paracentesis catheter system and direct ultrasound guidanc e. Approximately 5.4 liters of straw-colored fluid was removed. The patient was stable throughout the pr ocedure and remained stable upon discharge from Department of Radiology. IMPRESSION: Successful paracentesis under ultrasound guidance.
== END 2021-11-29 15:40 | disposition home or self-care (01) ==
LOC: RADPROMAIN 12:34
PROVIDERS: ATTEND Internal Medicine Gastroenterology
DX: R18.8 Other ascites (principal)
CPT/HCPCS: 85049; 85610; 49083; J2001; P9047; J2997

== ENCOUNTER → 2021-12-02 | Day surgery (SDC) | payer BC ==
[2021-12-02 09:27] VITALS: RESP 16; TEMP 97.5
[2021-12-02] MEDS: ALBUMIN HUMAN 25% 50 ML in EMPTY BAG 1 BAG IVPB SCH ×2 (10:05→10:19)
[2021-12-02 10:42] VITALS: BP 100/64; PULSE 73
--- NOTE | 2021-12-02 11:37 | US ---
Ultrasound-guided paracentesis. DATE OF EXAM: 12/02/2021 CLINICAL HISTORY: Ascites The procedure was discussed with the patient. The risks, complications, benefits, and alternatives we re discussed and any questions were answered. Informed consent was obtained. The patient was placed s upine on the ultrasound table and prepped and draped in the usual sterile fashion. All elements of maximal barrier technique were utilized. Under ultrasound guidance, access into the right lower quadrant was obtained, via the paracentesis catheter system and direct ultrasound guidanc e. Approximately 4.3 liters of straw-colored fluid was removed. The patient was stable throughout the pr ocedure and remained stable upon discharge from Department of Radiology. IMPRESSION: Successful paracentesis under ultrasound guidance.
== END ==
LOC: RADPROMAIN 09:16
PROVIDERS: ATTEND Internal Medicine Gastroenterology
DX: R18.8 Other ascites (principal)
CPT/HCPCS: 49083; P9047; J1642

== ENCOUNTER 2021-12-13 12:29 | Day surgery (SDC) | payer BC ==
[2021-12-13 13:09] LABS: Mean Platelet Volume 6.4; Platelet Count 364 k/uL (150-450)
[2021-12-13 13:10] LABS: Prothrombin Time 10.6 sec (9.0-12.0)
[2021-12-13 13:11] VITALS: RESP 16; TEMP 98.3
[2021-12-13] MEDS: ALBUMIN HUMAN 25% 50 ML in EMPTY BAG 1 BAG IVPB SCH ×2 (13:52→14:07)
[2021-12-13 14:33] VITALS: PULSE 64
[2021-12-13 14:47] VITALS: BP 108/66
--- NOTE | 2021-12-13 15:10 | US ---
EXAMINATION TYPE: US paracentesis abd w/image DATE OF EXAM: 12/13/2021 COMPARISON: NONE HISTORY: Ascites. PROCEDURE: Maximal barrier technique was utilized. The skin overlying a suitable pocket of fluid was localized with ultrasound and the overlying skin was prepped and draped. Ultrasound was utilized with sterile technique. Lidocaine was used for local anesthesia and a skin arina made with a scalpel. Catheter was advanced under direct ultrasound guidance into a suitable pocket of fluid and approximately 3.7 liter s of serous fluid were removed. Catheter was withdrawn and hemostasis achieved. There is no immedia te complication; the patient is discharged in stable condition. IMPRESSION: STATUS POST ULTRASOUND GUIDED PARACENTESIS FOR PALLIATION OF ASCITES. THIS PROCEDURE WA S PERFORMED BY THE UNDERSIGNED.
== END 2021-12-13 14:54 | disposition home or self-care (01) ==
LOC: RADPROMAIN 12:29
PROVIDERS: ATTEND Internal Medicine Gastroenterology
DX: R18.8 Other ascites (principal)
CPT/HCPCS: 49083; 85049; 85610; P9047; J1642

== ENCOUNTER 2021-12-20 09:31 | Day surgery (SDC) | payer BC ==
[2021-12-20 10:17] VITALS: RESP 18; TEMP 97.7
[2021-12-20] MEDS: ALBUMIN HUMAN 25% 50 ML in EMPTY BAG 1 BAG IVPB SCH ×2 (10:32→10:52)
[2021-12-20 11:44] VITALS: BP 101/66; PULSE 74
--- NOTE | 2021-12-20 12:10 | US ---
EXAMINATION TYPE: US paracentesis abd w/image DATE OF EXAM: 12/20/2021 COMPARISON: NONE HISTORY: Ascites. PROCEDURE: Maximal barrier technique was utilized. The skin overlying a suitable pocket of fluid was localized with ultrasound and the overlying skin was prepped and draped. Ultrasound was utilized with sterile technique. Lidocaine was used for local anesthesia and a skin arina made with a scalpel. Catheter was advanced under direct ultrasound guidance into a suitable pocket of fluid and approximately 5.8 liter s of serous fluid were removed. Catheter was withdrawn and hemostasis achieved. There is no immedia te complication; the patient is discharged in stable condition. IMPRESSION: STATUS POST ULTRASOUND GUIDED PARACENTESIS FOR PALLIATION OF ASCITES. THIS PROCEDURE WA S PERFORMED BY THE UNDERSIGNED.
== END 2021-12-20 11:45 | disposition home or self-care (01) ==
LOC: RADPROMAIN 09:31
PROVIDERS: ATTEND Student in an Organized Health Care Education/Training Program
DX: R18.8 Other ascites (principal)
CPT/HCPCS: 49083; P9047; J1642

== ENCOUNTER 2021-12-27 12:30 | Day surgery (SDC) | payer BC ==
[2021-12-27 12:50] VITALS: RESP 16
[2021-12-27 12:54] LABS: Mean Platelet Volume 6.6; Platelet Count 477 k/uL (150-450)
[2021-12-27 13:08] LABS: Prothrombin Time 10.7 sec (9.0-12.0)
[2021-12-27] MEDS: ALBUMIN HUMAN 25% 50 ML in EMPTY BAG 1 BAG IVPB SCH ×2 (13:40→13:56)
[2021-12-27 14:35] VITALS: BP 113/78; PULSE 65
--- NOTE | 2021-12-27 15:57 | US ---
Ultrasound-guided paracentesis. DATE OF EXAM: 12/27/2021 CLINICAL HISTORY: Ascites The procedure was discussed with the patient. The risks, complications, benefits, and alternatives we re discussed and any questions were answered. Informed consent was obtained. The patient was placed s upine on the ultrasound table and prepped and draped in the usual sterile fashion. All elements of maximal barrier technique were utilized. Under ultrasound guidance, access into the right lower quadrant was obtained, via the paracentesis catheter system and direct ultrasound guidanc e. Approximately 4.9 liters of straw-colored fluid was removed. The patient was stable throughout the pr ocedure and remained stable upon discharge from Department of Radiology. IMPRESSION: Successful paracentesis under ultrasound guidance.
== END 2021-12-27 14:45 | disposition home or self-care (01) ==
LOC: RADPROMAIN 12:30
PROVIDERS: ATTEND Family Medicine
DX: R18.0 Malignant ascites (principal); E88.09 Other disorders of plasma-protein metabolism, not elsewhere classified
CPT/HCPCS: 85049; 85610; 49083; P9047; J1642

== ENCOUNTER 2021-12-30 09:14 | Day surgery (SDC) | payer BC ==
[2021-12-30] MEDS: ALBUMIN HUMAN 25% 50 ML in EMPTY BAG 1 BAG IVPB SCH ×2 (10:10→10:23)
[2021-12-30 10:19] VITALS: RESP 16
[2021-12-30 11:22] VITALS: BP 109/64; PULSE 66
--- NOTE | 2021-12-30 12:58 | US ---
Ultrasound-guided paracentesis. DATE OF EXAM: 12/30/2021 CLINICAL HISTORY: Ascites The procedure was discussed with the patient. The risks, complications, benefits, and alternatives we re discussed and any questions were answered. Informed consent was obtained. The patient was placed s upine on the ultrasound table and prepped and draped in the usual sterile fashion. All elements of maximal barrier technique were utilized. Under ultrasound guidance, access into the right lower quadrant was obtained, via the paracentesis catheter system and direct ultrasound guidanc e. Approximately 3.3 liters of straw-colored fluid was removed. The patient was stable throughout the pr ocedure and remained stable upon discharge from Department of Radiology. IMPRESSION: Successful paracentesis under ultrasound guidance.
== END 2021-12-30 10:55 | disposition home or self-care (01) ==
LOC: RADPROMAIN 09:14
PROVIDERS: ATTEND Family Medicine
DX: R18.8 Other ascites (principal)
CPT/HCPCS: 49083; P9047

== ENCOUNTER → 2022-01-03 | Day surgery (SDC) | payer BC ==
[2022-01-03 13:13] LABS: Mean Platelet Volume 6.5; Platelet Count 404 k/uL (150-450)
[2022-01-03 13:30] LABS: INR 0.9 (<1.2)
[2022-01-03] MEDS: ALBUMIN HUMAN 25% 50 ML in EMPTY BAG 1 BAG IVPB SCH ×2 (13:30→13:57)
[2022-01-03 13:56] VITALS: BP 107/72; PULSE 76; RESP 16; TEMP 98
--- NOTE | 2022-01-03 15:25 | US ---
Discontinued paracentesis HISTORY: R 18.8 Ultrasound performed in preparation for procedure showed multiple bowel loops. There is mild ascites. Suitable approach was not identified for percutaneous access to the ascites. IMPRESSION: Exam is aborted at this time. Discontinued paracentesis.
== END ==
LOC: RADPROMAIN 12:34
PROVIDERS: ATTEND Student in an Organized Health Care Education/Training Program
DX: R18.8 Other ascites (principal)
CPT/HCPCS: 85049; 85610; 76705; P9047; J1642

== ENCOUNTER 2022-01-06 09:20 | Day surgery (SDC) | payer BC ==
[2022-01-06] MEDS: ALBUMIN HUMAN 25% 50 ML in EMPTY BAG 1 BAG IVPB SCH ×2 (10:35→10:55)
[2022-01-06 11:11] VITALS: RESP 18; TEMP 97.7
[2022-01-06 12:06] VITALS: BP 104/70; PULSE 74
--- NOTE | 2022-01-06 12:32 | US ---
EXAMINATION TYPE: US paracentesis abd w/image DATE OF EXAM: 01/06/2022 COMPARISON: NONE HISTORY: Ascites. PROCEDURE: Maximal barrier technique was utilized. The skin overlying a suitable pocket of fluid was localized with ultrasound and the overlying skin was prepped and draped. Ultrasound was utilized with sterile technique. Lidocaine was used for local anesthesia and a skin arina made with a scalpel. Catheter was advanced under direct ultrasound guidance into a suitable pocket of fluid and approximately 3.4 liter s of serous fluid were removed. Catheter was withdrawn and hemostasis achieved. There is no immedia te complication; the patient is discharged in stable condition. IMPRESSION: STATUS POST ULTRASOUND GUIDED PARACENTESIS FOR PALLIATION OF ASCITES. THIS PROCEDURE WA S PERFORMED BY THE UNDERSIGNED.
== END 2022-01-06 11:10 | disposition home or self-care (01) ==
LOC: RADPROMAIN 09:20
PROVIDERS: ATTEND Student in an Organized Health Care Education/Training Program
DX: R18.8 Other ascites (principal); E88.09 Other disorders of plasma-protein metabolism, not elsewhere classified
CPT/HCPCS: 49083; P9047; J1642

== ENCOUNTER 2022-01-10 12:24 | Day surgery (SDC) | payer BC ==
[2022-01-10] MEDS: ALBUMIN HUMAN 25% 50 ML in EMPTY BAG 1 BAG IVPB SCH ×2 (13:12→13:34)
[2022-01-10] MEDS ORDERED: LIDOCAINE 1% PF 10 MG/ML (5 ML AMP) SQ ONE (13:17)
[2022-01-10 14:09] VITALS: RESP 18; TEMP 97.8
[2022-01-10 14:11] VITALS: PULSE 87
[2022-01-10 14:12] VITALS: BP 96/62
--- NOTE | 2022-01-10 15:55 | US ---
EXAMINATION TYPE: US paracentesis abd w/image DATE OF EXAM: 01/10/2022 COMPARISON: NONE HISTORY: Ascites. PROCEDURE: Maximal barrier technique was utilized. The skin overlying a suitable pocket of fluid was localized with ultrasound and the overlying skin was prepped and draped. Ultrasound was utilized with sterile technique. Lidocaine was used for local anesthesia and a skin arina made with a scalpel. Catheter was advanced under direct ultrasound guidance into a suitable pocket of fluid and approximately 2.4 liter s of ascitic fluid were removed. Catheter was withdrawn and hemostasis achieved. There is no immedi ate complication; the patient is discharged in stable condition. IMPRESSION: STATUS POST ULTRASOUND GUIDED PARACENTESIS FOR PALLIATION OF ASCITES. THIS PROCEDURE WA S PERFORMED BY THE UNDERSIGNED.
== END 2022-01-10 14:00 | disposition home or self-care (01) ==
LOC: RADPROMAIN 12:24
PROVIDERS: ATTEND Student in an Organized Health Care Education/Training Program
DX: R18.8 Other ascites (principal)
CPT/HCPCS: 49083; J2001; P9047; J1642